=== PATIENT | female | born 1950 | race African-American/Black ===

== ENCOUNTER → 2019-01-11 | Outpatient (CLI) | payer MEDICARE, MEDICAID ==
[~2019-01-11] MED LIST: IOHEXOL-300 100 ML BOTTLE ONE
== END | disposition home or self-care (01) ==
LOC: CT 08:46
PROVIDERS: ATTEND Internal Medicine Gastroenterology
DX: F10.20 Alcohol dependence, uncomplicated (principal)
CPT/HCPCS: 74160; Q9967